=== PATIENT | female | born 1960 | race Caucasian/White ===

== ENCOUNTER 2019-06-16 09:24 | Inpatient (IN) ==
[2019-06-16] MEDS ORDERED: Clindamycin 900 MG/50 ML 900 MG/50 ML IV.SOLN IVPB ONE (09:53)
[2019-06-16] MEDS ORDERED: Famotidine 20 MG/2 ML VIAL IVP ONE (10:13)
[2019-06-16] MEDS ORDERED: traMADol 50 MG TABLET PO ONE (10:13)
[2019-06-16] MEDS ORDERED: Acetaminophen IV 1,000 MG/100 ML INFUS..BTL IVPB ONE (10:15)
[2019-06-16] MEDS ORDERED: Ringers Solution, Lactated 1,000 ML IVC SCH (10:15)
[2019-06-16] MEDS ORDERED: Ondansetron 4 MG/2 ML VIAL ONE (11:07)
[2019-06-16] MEDS ORDERED: *HR* Propofol 200 MG/20 ML VIAL IVP ONE (11:07)
[2019-06-16] MEDS ORDERED: Lidocaine -MPF 2% 2 ML VIAL ONE ×4 (11:07→13:24)
[2019-06-16] MEDS ORDERED: *HR* Succinylcholine 200 MG/10 ML VIAL IVP ONE (11:07)
[2019-06-16] MEDS ORDERED: *HR* Rocuronium Bromide 50 MG/5 ML VIAL ONE ×2 (11:07→13:43)
[2019-06-16] MEDS ORDERED: Neostigmine Methylsulfate 3 MG/3 ML SYRINGE ONE (11:07)
[2019-06-16] MEDS ORDERED: Dexamethasone 4 MG/ML VIAL ONE (11:07)
[2019-06-16] MEDS ORDERED: Lidocaine -MPF 4% 5 ML AMPUL ONE (11:21)
[2019-06-16] MEDS ORDERED: *HR* FentaNYL (PF) 100 MCG/2 ML VIAL ONE (11:41)
[2019-06-16] MEDS ORDERED: *HR* Midazolam HCl 2 MG/2 ML VIAL ONE (11:41)
[2019-06-16] MEDS ORDERED: *HR* PHENYLEPHRINE 1,000 MCG/10 ML SYRINGE IVP ONE (12:27)
[2019-06-16] MEDS ORDERED: *HR* HYDROMORPHONE 2 MG/ML VIAL ONE (14:07)
[2019-06-16] MEDS ORDERED: Morphine Sulfate 2 MG/ML SYRINGE IVP PRN (14:19)
[2019-06-16] MEDS ORDERED: *HR* HYDROcodone/Acet 5/325 mg TABLET PO PRN (14:19)
[2019-06-16] MEDS ORDERED: 0.9 % Sodium Chloride 1,000 ML IVC SCH ×2 (15:00→16:00)
[2019-06-16] MEDS ORDERED: Naloxone 0.4 MG/ML INJ IVP PRN ×2 (15:00→16:02)
[2019-06-16] MEDS: *HR* Heparin 5,000 UNIT/ML VIAL SQ SCH (17:59)
[2019-06-16] MEDS: Ketorolac 15 MG/ML VIAL IVP SCH ×2 (17:59→23:24)
[2019-06-16] MEDS ORDERED: *HR* Heparin 5,000 UNIT/ML VIAL SQ SCH (18:00)
[2019-06-16] MEDS ORDERED: Ketorolac 15 MG/ML VIAL IVP SCH (18:00)
[2019-06-17] MEDS: Ketorolac 15 MG/ML VIAL IVP SCH (05:27)
[2019-06-17] MEDS: *HR* Heparin 5,000 UNIT/ML VIAL SQ SCH (05:27)
[2019-06-17 05:33] LABS: Basophils % 0.2 %; Eosinophils # 0.1 K/mcL (0.0-0.6); Eosinophils % 1.2 %; Hematocrit 41.6 % (35.3-44.9); Hemoglobin 14.1 g/dL (11.5-15.4); Immature Granulocytes % 0.3 % (0-4); Lymphocytes # 2.4 K/mcL (0.6-4.6); Lymphocytes % 25.9 %; Mean Corpuscular HGB Conc 33.9 g/dL (31.6-35.5); Mean Corpuscular Hemoglobin 31.8 pg (28.0-33.3); Mean Corpuscular Volume 93.9 fL (83.0-100.0); Mean Platelet Volume 10.4 fL (9.4-12.4); Monocytes % 10.8 %; Neutrophils # 5.6 K/mcL (1.6-8.9); Platelet Count 240 K/mcL (140-400); Red Blood Count 4.43 M/mcL (3.82-4.97); Red Cell Distribution Width 12.3 % (11.5-14.5); Segmented Neutrophils % 61.6 %; White Blood Count 9.1 K/mcL (4.3-11.1)
[2019-06-17 07:27] LABS: BUN/Creatinine Ratio 21 (6-26); Blood Urea Nitrogen 16 mg/dL (6-20); Calcium 8.7 mg/dL (8.6-10.3); Carbon Dioxide 26 mEq/L (23-29); Chloride 102 mEq/L (98-107); Glucose 103 mg/dL (70-105); Osmolality,Calculated 287 (280-300); Sodium 138 mEq/L (136-145); eGFR For African Americans > 60 (> 60); eGFR For Non-African Americans > 60 (> 60)
[2019-06-17] MEDS ORDERED: Furosemide 20 MG TABLET PO PRN (10:04)
[2019-06-17] MEDS ORDERED: Acetaminophen 325 MG TABLET PO PRN (10:07)
[2019-06-17] MEDS ORDERED: D5% in Water 1,000 ML IVC PRN (10:10)
[2019-06-17] MEDS ORDERED: *HR* Dextrose 50 % in Water (Syg) 50 ML SYRINGE IVP PRN (10:10)
[2019-06-17] MEDS ORDERED: Dextrose Gel 15 GM/37.5 ML TUBE PO PRN ×2 (10:10)
[2019-06-17] MEDS ORDERED: Insulin LISPRO 300 UNITS/3 ML VIAL SQ SCH ×2 (11:30→21:00)
[2019-06-17] MEDS ORDERED: Ibuprofen 800 MG TABLET PO PRN (12:00)
[2019-06-17] MEDS: traMADol 50 MG TABLET PO SCH ×2 (12:39→15:56)
[2019-06-17 15:41] VITALS: BP 127/80
[2019-06-17] MEDS ORDERED: *HR* Metformin 500 MG TABLET PO SCH (17:00)
[2019-06-17] MEDS ORDERED: *HR* Glimepiride 4 MG TABLET PO SCH (18:00)
[2019-06-18] MEDS ORDERED: Aspirin Enteric Coated 81 MG Tablet PO SCH (09:00)
== END 2019-06-17 18:45 | disposition home or self-care (01) | DRG 331 ==
LOC: SAMDAY 09:24 → 3ANU 15:10
PROVIDERS: ADMIT Surgery; ATTEND Surgery